=== PATIENT | male | born 1960 | race Caucasian/White ===

== ENCOUNTER 2020-02-26 10:30 | Day surgery (SDC) | payer MEDICARE ==
[~2020-02-26] VITALS: Ht 167.6 cm; Wt 98.6 kg
[~2020-02-26 10:30] MED LIST: AMBIEN10 MG PO; BUPROPION XL150 MG PO; FERROUS SULFAT325 MG PO; GABAPENTIN300 MG PO; LIORESAL 10 MG10 MG PO; LISINOPRIL5 MG PO; PEPCID40 MG PO; PRAVACHOL40 MG PO; ZOLOFT100 MG PO
[2020-02-26 11:18] LABS: HEMATOCRIT 45.4 % (42.0-54.0); HEMOGLOBIN 15.1 g/dL (13.5-17.5); MCH 33.6 pg (26.0-34.0); MCHC 33.3 g/dL (31.0-37.0); MCV 101.1 fL (80.0-100.0); MEAN PLATELET VOLUME 9.2 fL (7.4-10.4); RBC 4.49 10x6/uL (4.20-6.10); RDW 13.2 % (11.5-14.5); WBC 17.2 10x3/uL (4.8-10.8)
[2020-02-26 11:42] VITALS: BP 95/55; Ht 167.6 cm; Wt 98.6 kg
--- NOTE | 2020-02-26 13:47 | NUR ---
1328 DR. SUSY WILKERSON. 1350 LILIANA SCHNEIDER SERVED. HOB ELEVATED
--- NOTE | 2020-02-28 16:54 | OP ---
PATIENT NAME: PIERRE DICKSON MEDICAL RECORD: [id number] :62 LOCATION:NIC ADMISSION DATE: SURGEON: GM JAIN DO DATE OF OPERATION: 02/26/2020 PROCEDURE: EGD with biopsies. INDICATIONS FOR PROCEDURE: Epigastric pain and GERD. SCOPE: Olympus video gastroscope. MEDICATIONS: Propofol 260 mg IV per anesthesia. ESTIMATED BLOOD LOSS: Minimal. COMPLICATIONS: None. FINDINGS: Informed consent was given. The patient was made comfortable with the above medication. After reaching an adequate level of sedation by slow IV push, the patient was placed on his left side. The endoscope was advanced under direct visualization through the mouth to the second portion of the duodenum with ease. The upper and middle esophagus appeared normal. 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 There was no obvious dysplasia or areas with an abnormal appearance. Cold forceps biopsies were taken throughout the Marie segment to submit for pathology. The endoscope was advanced beyond the GE junction into the stomach where a moderate hiatal hernia was visualized both proximally and distally upon retroflexion. Throughout the stomach itself, there were areas of erythema and granularity consistent with mild chronic gastritis. Cold forceps biopsies were taken from the antrum and incisura to submit for histopathology and to rule out the presence of H. pylori. The endoscope was advanced beyond the pylorus into the duodenum, which appeared normal to the second portion. The endoscope was withdrawn from the patient. The patient tolerated the procedure well and there were no complications. IMPRESSION: 1. 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 Biopsies were taken to submit for histopathology. 2. Moderate to large hiatal hernia. 3. Mild chronic gastritis changes. PLAN AND RECOMMENDATIONS: 1. Discharge home when recovery parameters are met. 2. Follow up biopsy specimen results. 3. GERD diet and reflux precautions. 4. Continue current medications. 5. Omeprazole 40 mg daily. 6. Referral to general surgery regarding a moderate to large hiatal hernia, which is causing abdominal pain, contributing to Marie esophagus. TRANSINT:[id number] Voice Confirmation ID: [id number] DOCUMENT ID: [id number] OPERATIVE REPORT [id number] PIERRE DICKSON MG JAIN DO at 8682 CC: [id number] DICTATION DATE: 02/26/20 1313 [facility] [employer] LABORATORY ASSISTANT: 02/26/20 [facility] 02/26/20 [facility] [address] [facility] [place] [address]
== END 2020-02-26 14:20 | disposition home or self-care (01) ==
LOC: D.OPS 10:30
PROVIDERS: Anesthesiology; ATTEND Internal Medicine Gastroenterology
DX: R10.13 Epigastric pain (principal); Z12.11 Encounter for screening for malignant neoplasm of colon; Z80.0 Family history of malignant neoplasm of digestive organs; K21.9 Gastro-esophageal reflux disease without esophagitis; K22.70 Barrett's esophagus without dysplasia

== ENCOUNTER → 2020-03-15 07:47 | Outpatient (CLI) | payer MEDICARE ==
[2020-02-26 11:42] VITALS: BMI 35.1
== END | disposition home or self-care (01) ==
LOC: D.CT 07:47
PROVIDERS: ATTEND Surgery
DX: K44.9 Diaphragmatic hernia without obstruction or gangrene (principal); K43.9 Ventral hernia without obstruction or gangrene